=== PATIENT | female | born 1960 | race Caucasian/White ===

== ENCOUNTER 2025-08-06 08:21 | Inpatient (IN) ==
[2025-08-06] MEDS ORDERED: IOPAMIDOL 100 ML BOTTLE IV ONE (08:22)
[2025-08-06] MEDS: 0.9 % SODIUM CHLORIDE 1,000 ML IV ONE (08:39)
[2025-08-06 09:13] LABS: Basophils # (Auto) 0.02 K/mcL (0.00-0.30); Basophils % (Auto) 0.2 % (0.0-2.0); Eosinophils # (Auto) 0.29 K/mcL (0.00-0.70); Eosinophils % (Auto) 2.8 % (0.0-7.0); Hematocrit 31.1 % (34.1-44.9); Hemoglobin 10.7 g/dL (11.2-15.7); Lymphocytes # (Auto) 2.20 K/mcL (1.50-4.80); Lymphocytes % (Auto) 21.0 % (15.5-49.0); Mean Corpuscular HGB Conc 34.4 g/dL (31.0-36.0); Monocytes # (Auto) 0.85 K/mcL (0.10-0.90); Monocytes % (Auto) 8.1 % (1.0-12.0); Neutrophils % (Auto) 66.9 % (38.0-78.0); Platelet Count 207 K/mcL (140-440); RBC 2.90 M/mcL (3.59-5.38); WBC 10.5 K/mcL (4.5-11.0)
[2025-08-06 09:30] LABS: Thyroid Stimulating Hormone 3.83 uIU/mL (0.27-5.01)
[2025-08-06 09:39] LABS: ALT/SGPT 58 U/L (<40); AST/SGOT 174 U/L (<32); Albumin 2.5 gm/dL (3.2-5.2); Albumin/Globulin Ratio 0.7 (1.0-2.3); Alkaline Phosphatase 622 U/L (39-117); Anion Gap 21.0 (8.0-16.0); Bilirubin,Total 4.3 mg/dL (0.1-1.0); Blood Urea Nitrogen 8 mg/dL (8-23); Calcium 7.3 mg/dL (8.6-10.4); Carbon Dioxide 22 mmol/L (22-30); Chloride 87 mmol/L (96-108); Globulin 3.7 gm/dL (2.2-3.7); Glucose 86 mg/dL (70-105); Potassium 2.2 mmol/L (3.3-5.1); Sodium 130 mmol/L (133-145)
[2025-08-06 10:02] LABS: Bacteria,Urine 0 /hpf (0); Bilirubin,Urine Negative (Negative); Color,Urine YELLOW; Glucose,Urine (UA) NEGATIVE (Negative); Ketones,Urine TRACE mg/dL (Negative); Leukocyte Esterase,Urine NEGATIVE /uL (Negative); PH,Urine 6.0 (5.0-9.0); Protein,Urine NEGATIVE (Negative); Specific Gravity,Urine 1.010 (1.000-1.035); Urobilinogen,Urine 1.0 mg/dL
[2025-08-06] MEDS: POTASSIUM CHLORIDE 40 MEQ in DEXTROSE 5% IN WATER 500 ML IV ONE ×2 (10:29→10:31)
[2025-08-06] MEDS: POTASSIUM CHLORIDE 20 MEQ TABLET PO ONE (10:29)
[2025-08-06] MEDS: cefTRIAXone 1 GM VIAL IV ONE (10:40)
[2025-08-06] MEDS: MAGNESIUM SULFATE 2 GM/50 ML BAG IV ONE (11:43)
[2025-08-06 13:10] LABS: Phosphorous 1.3 mg/dL (2.5-4.5)
[2025-08-06 13:19] LABS: Anisocytosis 1+ (None Seen); RBC Morphology ABNORMAL (Normal)
[2025-08-06] MEDS ORDERED: METOCLOPRAMIDE 10 MG/2 ML VIAL IV PRN (14:09)
[2025-08-06] MEDS ORDERED: POTASSIUM CHLORIDE 20 MEQ TABLET PO PRN (14:09)
[2025-08-06] MEDS ORDERED: SENNOSIDES 1 TABLET PO PRN (14:09)
[2025-08-06] MEDS ORDERED: POLYETHYLENE GLYCOL 3350 17 GM PACKET PO PRN (14:09)
[2025-08-06] MEDS: POTASSIUM PHOSPHATE 40 MEQ in DEXTROSE 5% IN WATER 500 ML IV ONE (14:54)
[2025-08-06] MEDS: AZITHROMYCIN 500 MG in DEXTROSE 5% IN WATER 250 ML IV SCH (14:54)
[2025-08-06 15:56] LABS: Folate 6.2 ng/mL (4.2-19.9)
[2025-08-06] MEDS: CALCIUM GLUCONATE 4.65 MEQ in DEXTROSE 5% IN WATER 50 ML IV ONE (16:17)
[2025-08-06] MEDS: BENZONATATE 100 MG CAPSULE PO PRN (20:08)
[2025-08-06] MEDS: DOCUSATE SODIUM 100 MG CAPSULE PO SCH (20:08)
[2025-08-07 06:22] LABS: ALT/SGPT 48 U/L (<40); AST/SGOT 150 U/L (<32); Albumin 2.2 gm/dL (3.2-5.2); Albumin/Globulin Ratio 0.7 (1.0-2.3); Alkaline Phosphatase 542 U/L (39-117); Anion Gap 11.0 (8.0-16.0); Bilirubin,Direct 2.8 mg/dL (<0.3); Bilirubin,Total 3.3 mg/dL (0.1-1.0); Blood Urea Nitrogen 6 mg/dL (8-23); Calcium 6.8 mg/dL (8.6-10.4); Carbon Dioxide 23 mmol/L (22-30); Chloride 92 mmol/L (96-108); Globulin 3.2 gm/dL (2.2-3.7); Glucose 96 mg/dL (70-105); Phosphorous 2.0 mg/dL (2.5-4.5); Potassium 3.0 mmol/L (3.3-5.1); Sodium 126 mmol/L (133-145); Triglycerides 139 mg/dL (<150); Uric Acid 4.8 mg/dL (2.5-8.0)
[2025-08-07 06:30] LABS: Basophils # (Auto) 0.01 K/mcL (0.00-0.30); Basophils % (Auto) 0.1 % (0.0-2.0); Eosinophils # (Auto) 0.26 K/mcL (0.00-0.70); Eosinophils % (Auto) 3.2 % (0.0-7.0); Hematocrit 27.7 % (34.1-44.9); Hemoglobin 9.6 g/dL (11.2-15.7); Lymphocytes # (Auto) 1.58 K/mcL (1.50-4.80); Lymphocytes % (Auto) 19.2 % (15.5-49.0); Mean Corpuscular HGB Conc 34.7 g/dL (31.0-36.0); Monocytes # (Auto) 0.61 K/mcL (0.10-0.90); Monocytes % (Auto) 7.4 % (1.0-12.0); Neutrophils % (Auto) 69.1 % (38.0-78.0); Platelet Count 160 K/mcL (140-440); RBC 2.55 M/mcL (3.59-5.38); WBC 8.2 K/mcL (4.5-11.0)
[2025-08-07] MEDS: POTASSIUM CHLORIDE 20 MEQ TABLET PO PRN (07:27)
[2025-08-07] MEDS: MAGNESIUM SULFATE 2 GM/50 ML BAG IV PRN (07:28)
[2025-08-07] MEDS: SODIUM CHLORIDE 1 GM TABLET PO SCH (08:20)
[2025-08-07] MEDS: NEUTRA PHOS 1 PACKET PO SCH (08:20)
[2025-08-07] MEDS: ALBUMIN HUMAN 12.5 GM/50 ML VIAL IV ONE ×2 (08:21→11:08)
[2025-08-07] MEDS: PHOSPHORUS 250 MG TABLET PO SCH (08:21)
[2025-08-07] MEDS: ENOXAPARIN 40 MG/0.4 ML SYRINGE SQ SCH (08:21)
[2025-08-07 08:28] LABS: Thyroid Stimulating Hormone 3.1 uIU/mL (0.27-5.01)
[2025-08-07] MEDS: FUROSEMIDE 20 MG/2 ML VIAL IV ONE (09:02)
[2025-08-07] MEDS: cefTRIAXone 1 GM VIAL IV SCH (09:03)
[2025-08-07] MEDS: CALCIUM GLUCONATE 9.3 MEQ in DEXTROSE 5% IN WATER 50 ML IV ONE (09:03)
[2025-08-07 09:28] LABS: Sodium, Urine Random < 10 mmol/L
[2025-08-07] MEDS: IPRATROPIUM/ALBUTEROL 3 ML AMPUL.NEB NEB PRN (09:58)
[2025-08-07] MEDS: FUROSEMIDE 40 MG/4 ML VIAL IV ONE (11:08)
[2025-08-07] MEDS: ONDANSETRON 4 MG/2 ML VIAL IV PRN (14:34)
[2025-08-07 18:02] LABS: Phosphorous 2.4 mg/dL (2.5-4.5)
[2025-08-07 18:04] LABS: Anion Gap 12.0 (8.0-16.0); Blood Urea Nitrogen 6 mg/dL (8-23); Calcium 7.5 mg/dL (8.6-10.4); Carbon Dioxide 22 mmol/L (22-30); Chloride 94 mmol/L (96-108); Glucose 108 mg/dL (70-105); Potassium 3.5 mmol/L (3.3-5.1); Sodium 128 mmol/L (133-145)
[2025-08-08 06:27] LABS: ALT/SGPT 45 U/L (<40); AST/SGOT 144 U/L (<32); Albumin 2.4 gm/dL (3.2-5.2); Albumin/Globulin Ratio 0.7 (1.0-2.3); Alkaline Phosphatase 549 U/L (39-117); Anion Gap 11.0 (8.0-16.0); Bilirubin,Direct 2.3 mg/dL (<0.3); Bilirubin,Total 3.4 mg/dL (0.1-1.0); Blood Urea Nitrogen 7 mg/dL (8-23); Calcium 7.5 mg/dL (8.6-10.4); Carbon Dioxide 26 mmol/L (22-30); Chloride 94 mmol/L (96-108); Globulin 3.4 gm/dL (2.2-3.7); Glucose 118 mg/dL (70-105); Phosphorous 2.7 mg/dL (2.5-4.5); Potassium 3.8 mmol/L (3.3-5.1); Sodium 131 mmol/L (133-145); Triglycerides 150 mg/dL (<150); Uric Acid 4.0 mg/dL (2.5-8.0)
[2025-08-08 07:28] LABS: Basophils # (Auto) 0.01 K/mcL (0.00-0.30); Basophils % (Auto) 0.1 % (0.0-2.0); Eosinophils # (Auto) 0.32 K/mcL (0.00-0.70); Eosinophils % (Auto) 3.8 % (0.0-7.0); Hematocrit 27.5 % (34.1-44.9); Hemoglobin 9.7 g/dL (11.2-15.7); Lymphocytes # (Auto) 1.67 K/mcL (1.50-4.80); Lymphocytes % (Auto) 20.1 % (15.5-49.0); Mean Corpuscular HGB Conc 35.3 g/dL (31.0-36.0); Monocytes # (Auto) 0.34 K/mcL (0.10-0.90); Monocytes % (Auto) 4.1 % (1.0-12.0); Neutrophils % (Auto) 71.1 % (38.0-78.0); Platelet Count 167 K/mcL (140-440); RBC 2.56 M/mcL (3.59-5.38); WBC 8.3 K/mcL (4.5-11.0)
[2025-08-08] MEDS: ACETAMINOPHEN 325 MG TABLET PO PRN (07:33)
[2025-08-08] MEDS: FUROSEMIDE 40 MG/4 ML VIAL IV SCH (09:34)
[2025-08-08] MEDS: ALBUMIN HUMAN 12.5 GM/50 ML VIAL IV ONE (09:34)
[2025-08-09 07:16] LABS: Basophils # (Auto) 0.01 K/mcL (0.00-0.30); Basophils % (Auto) 0.2 % (0.0-2.0); Eosinophils # (Auto) 0.27 K/mcL (0.00-0.70); Eosinophils % (Auto) 4.2 % (0.0-7.0); Hematocrit 25.8 % (34.1-44.9); Hemoglobin 9.0 g/dL (11.2-15.7); Lymphocytes # (Auto) 1.45 K/mcL (1.50-4.80); Lymphocytes % (Auto) 22.5 % (15.5-49.0); Mean Corpuscular HGB Conc 34.9 g/dL (31.0-36.0); Monocytes # (Auto) 0.24 K/mcL (0.10-0.90); Monocytes % (Auto) 3.7 % (1.0-12.0); Neutrophils % (Auto) 68.8 % (38.0-78.0); Platelet Count 150 K/mcL (140-440); RBC 2.38 M/mcL (3.59-5.38); WBC 6.5 K/mcL (4.5-11.0)
[2025-08-09 07:17] LABS: ALT/SGPT 34 U/L (<40); AST/SGOT 116 U/L (<32); Albumin 2.3 gm/dL (3.2-5.2); Albumin/Globulin Ratio 0.7 (1.0-2.3); Alkaline Phosphatase 467 U/L (39-117); Anion Gap 10.0 (8.0-16.0); Bilirubin,Total 3.0 mg/dL (0.1-1.0); Blood Urea Nitrogen 9 mg/dL (8-23); Calcium 7.2 mg/dL (8.6-10.4); Carbon Dioxide 28 mmol/L (22-30); Chloride 97 mmol/L (96-108); Globulin 3.1 gm/dL (2.2-3.7); Glucose 101 mg/dL (70-105); Potassium 2.9 mmol/L (3.3-5.1); Sodium 135 mmol/L (133-145)
[2025-08-09] MEDS: POTASSIUM CHLORIDE 40 MEQ in DEXTROSE 5% IN WATER 500 ML IV PRN (10:22)
[2025-08-09] MEDS: guaiFENesin/DEXTROMETHORPHAN 5ML UD CUP PO PRN (11:07)
[2025-08-09 16:24] LABS: Potassium 3.2 mmol/L (3.3-5.1)
[2025-08-10 07:10] LABS: ALT/SGPT 32 U/L (<40); AST/SGOT 127 U/L (<32); Albumin 2.3 gm/dL (3.2-5.2); Albumin/Globulin Ratio 0.7 (1.0-2.3); Alkaline Phosphatase 477 U/L (39-117); Anion Gap 8.0 (8.0-16.0); Bilirubin,Total 2.9 mg/dL (0.1-1.0); Blood Urea Nitrogen 9 mg/dL (8-23); Calcium 7.5 mg/dL (8.6-10.4); Carbon Dioxide 28 mmol/L (22-30); Chloride 101 mmol/L (96-108); Globulin 3.2 gm/dL (2.2-3.7); Glucose 95 mg/dL (70-105); Potassium 3.8 mmol/L (3.3-5.1); Sodium 137 mmol/L (133-145)
[2025-08-10 07:27] LABS: Basophils # (Auto) 0.01 K/mcL (0.00-0.30); Basophils % (Auto) 0.1 % (0.0-2.0); Eosinophils # (Auto) 0.43 K/mcL (0.00-0.70); Eosinophils % (Auto) 5.2 % (0.0-7.0); Hematocrit 27.8 % (34.1-44.9); Hemoglobin 9.3 g/dL (11.2-15.7); Lymphocytes # (Auto) 1.92 K/mcL (1.50-4.80); Lymphocytes % (Auto) 23.1 % (15.5-49.0); Mean Corpuscular HGB Conc 33.5 g/dL (31.0-36.0); Monocytes # (Auto) 0.58 K/mcL (0.10-0.90); Monocytes % (Auto) 7.0 % (1.0-12.0); Neutrophils % (Auto) 63.9 % (38.0-78.0); Platelet Count 173 K/mcL (140-440); RBC 2.48 M/mcL (3.59-5.38); WBC 8.3 K/mcL (4.5-11.0)
[2025-08-10 12:08] VITALS: O2SAT 98
[2025-08-10 13:13] LABS: Legionella pneumophilia Ag, Ur Negative (Negative)
[2025-08-10 13:26] VITALS: TEMP 98.1
== END 2025-08-10 13:12 | DRG 871 ==
LOC: ED 08:21 → ICU 13:52
PROVIDERS: ADMIT Internal Medicine; ATTEND Internal Medicine